=== PATIENT | female | born 1955 | race Hispanic/Latino ===

== ENCOUNTER 2019-04-14 19:58 | Emergency (ER) | payer MEDICARE ==
[~2019-04-14 19:58] MED LIST: CYCL10TA7 PO; INSU100V3 IJ; LORA0.5T2 PO; LOSA100T58 PO; METF-444 PO; TRAM50TA4 PO
[2019-04-14] MEDS ORDERED: ACETAMINOPHEN EXTRA STRENGTH 500 MG TABLET ONE (21:44)
== END 2019-04-14 23:35 | disposition home or self-care (01) ==
LOC: EDH 19:58
DX: J20.9 Acute bronchitis, unspecified (principal); R50.9 Fever, unspecified; M19.90 Unspecified osteoarthritis, unspecified site; E11.9 Type 2 diabetes mellitus without complications; I10 Essential (primary) hypertension
CPT/HCPCS: 71046; 87804

== ENCOUNTER → 2019-06-28 | Outpatient (CLI) | payer MEDICARE | END | disposition home or self-care (01) | LOC: RAH 15:32 | PROVIDERS: ATTEND Internal Medicine | DX: M16.12 Unilateral primary osteoarthritis, left hip (principal); M25.532 Pain in left wrist; M25.762 Osteophyte, left knee | CPT/HCPCS: 73100; 73560 ==